=== PATIENT | female | born 2000 | race Caucasian/White ===

== ENCOUNTER 2023-07-13 01:06 | Emergency (ER) | payer OTHER, SELFPAY ==
[2023-07-13 01:08] VITALS: BP 128/75; PULSE 95; RESP 14; TEMP 36.5; O2SAT 100
--- NOTE | 2023-07-13 01:27 | ED.FEMALEGU ---
HPI - Female Genitourinary General Chief complaint: Urogenital-Female Stated complaint: UTI Time Seen by Provider: 07/13/23 01:21 History of Present Illness HPI Narrative: 22-year-old female presents to emergency department for dysuria and urinary frequency that started today. Patient states she has had a UTI in the past and this feels similar. She is reporting a vaginal discharge with scant amount of blood In it when she wipes. LMP 1.5 weeks ago. She does endorse irregular periods and states this is not abnormal for her. She denies hematuria, fever, nausea or vomiting, Flank pain, history of kidney stones. States she had some suprapubic pain earlier today but that has improved. She is sexually active with 1 partner and denies concern for STDs. Related Data Allergies Allergy/AdvReac Type Severity Reaction Status Date / Time No Known Allergies Allergy Verified 07/13/23 01:32 Review of Systems Review of Systems: CONSTITUTIONAL: Denies fever, chills, or sweats. EYES: Denies visual changes, redness, or discharge. ENT: Denies rhinorrhea, congestion, sore throat, or otalgia. CARDIOVASCULAR: Denies chest pain, palpitations, or edema. RESPIRATORY: Denies cough or dyspnea. GASTROINTESTINAL: Denies abdominal pain, nausea, vomiting, or diarrhea. GENITOURINARY: Denies dysuria or hematuria. SKIN: See HPI MUSCULOSKELETAL: Denies back pain, joint pain, or myalgia. NEUROLOGIC: Denies headache, numbness, or weakness. PSYCHIATRIC: Denies anxiety or depression. Exam Narrative: GENERAL: Well-appearing, well-nourished, and in no acute distress. Resting comfortably in exam bed. Pleasant and conversational. Nontoxic appearing HEAD: Normocephalic, atraumatic. EYES: PERRLA and EOMI. ENT: Nares clear, no rhinorrhea or epistaxis. Mucous membranes moist. NECK: Supple. CHEST: Clear to auscultation. No respiratory distress. HEART: Regular rate and rhythm. No murmur heard. Normal peripheral pulses. ABDOMEN: Soft, nontender, nondistended, normal active bowel sounds. no guarding, rebound or rigidity. No CVA tenderness. EXTREMITIES: Normal range of motion. No edema. SKIN: Warm, dry, no rash. NEURO: No focal deficits. Alert and oriented x3 Course Vital Signs Vital signs: Vital Signs Temperature 97.7 F 07/13/23 01:08 Pulse Rate 95 07/13/23 01:08 Respiratory Rate 14 07/13/23 01:08 Blood Pressure 128/75 07/13/23 01:08 Pulse Oximetry 100 07/13/23 01:08 Oxygen Delivery Room Air 07/13/23 01:08 Temperature 98.1 F 07/13/23 01:31 Pulse Rate 102 H 07/13/23 01:31 Respiratory Rate 16 07/13/23 01:31 Blood Pressure 108/66 07/13/23 01:31 Pulse Oximetry 100 07/13/23 01:31 Oxygen Delivery Room Air 07/13/23 01:08 MDM - Female Genitourinary MDM Narrative Medical decision making narrative: 22-year-old female presents to the emergency department for dysuria and urinary frequency that started today. Also reporting scant amount of blood in vaginal discharge which is not abnormal for her. Vital stable. She is afebrile and nontoxic appearing. Resting comfortably in exam bed. Abdomen is soft and nontender without CVA tenderness. test negative. Urinalysis significant for hematuria and pyuria with 3+ leuk esterase. No bacteruria. Labs discussed with the patient. Shared decision making regarding obtaining the CT scan for evaluation for a ureteral calculus. Patient declines and states she is not in significant pain consistent with a kidney stone. I also offered to perform a pelvic exam, however she declined and states irregular vaginal bleeding is not uncommon for her. Will prescribe Keflex for UTI, 1st dose provided here encouraged close PCP follow-up. Strict ED return precautions discussed. She is agreeable to plan verbalized understanding. Discharged in stable condition Lab Data Labs: Lab Results 07/13/23 Range/Units 01:24 Urine Color Yellow (Yellow) Urine Appeara
[2023-07-13 01:31] VITALS: BP 108/66; PULSE 102; RESP 16; TEMP 36.7; O2SAT 100
[2023-07-13 01:37] LABS: Appearance Urine Turbid (Clear); Bacteria Urine None Seen /hpf; Bilirubin Urine Negative (Negative); Blood Urine 3+ (Negative); Color Urine Yellow (Yellow); Glucose Urine UA Negative (Negative); Ketones Urine Negative (Negative); Leukocyte Esterase Ur 3+ LEU/UL (Negative); Nitrate Urine Negative (Negative); Non Pathogenic Casts 0-2; Protein Urine 2+ mg/dL (Negative); RBC Urine >100 /hpf (0-2); Specific Grav Ur 1.011 (1.001-1.035); Squamous Epithelial Cell Urine Moderate /hpf (Few); Urobilinogen Urine 0.2 mg/dL (<2.0); WBC Urine >100 /hpf (0-3)
[2023-07-13 01:39] LABS: Add Urine Microscopic? YES
[2023-07-13] MEDS: CEPHALEXIN 500 MG CAPSULE PO (01:55)
== END 2023-07-13 01:57 | disposition home or self-care (01) ==
LOC: ANHED 01:51
PROVIDERS: Emergency Provider Physician Assistant; PCP Internal Medicine
DX: N30.01 Acute cystitis with hematuria (principal)
CPT/HCPCS: 81025; 87077; 87086; 87088; 87186; 99283; A9270